=== PATIENT | female | born 1945 | race African-American/Black ===

== ENCOUNTER → 2024-02-16 11:28 | Outpatient (CLI) | payer BC, SELFPAY ==
--- NOTE | ~2024-02-16 | XR_ITS ---
XR ankle RT min 3V Ordering provider: Che Brown, GLACIOLOGIST History: . GEN PAIN AFTER FALL X 1 MONTH . Comparison: None. FINDINGS: BONES: No acute fracture. JOINT SPACES: Narrowing of the subtalar joint is noted. Proper views of the foot or CT are advised. SOFT TISSUES: Soft tissue swelling over the lateral malleolus. Calcaneal spur is seen. IMPRESSION: No definite acute osseous abnormality of the right ankle. Soft tissue swelling over the lateral malleolus. Narrowing of the subtalar joint. Proper views of the foot or CT are advised to exclude fractures in t he area. Reviewed, dictated and finalized at location A. IMPRESSION: No definite acute osseous abnormality of the right ankle. Soft tissue swelling over the lateral malleolus. Narrowing of the subtalar joint. Proper views of the foot or CT are advised to exclude fractures in the area.
== END ==
PROVIDERS: PCP Nurse Practitioner Family; Visit Provider Nurse Practitioner Family
DX: M79.89 Other specified soft tissue disorders (principal); M25.871 Other specified joint disorders, right ankle and foot
CPT/HCPCS: 73610